=== PATIENT | female | born 1990 | race Caucasian/White ===

== ENCOUNTER → 2017-09-27 | Outpatient (CLI) | payer OTHER ==
[2017-09-28 01:37] LABS: T3 TOTAL 112 ng/dL (87-178)
== END ==
LOC: LAB 13:44
PROVIDERS: Nurse Practitioner Family
DX: K59.00 Constipation, unspecified (principal); R53.81 Other malaise

== ENCOUNTER → 2017-10-27 | Outpatient (CLI) | payer OTHER ==
[2017-10-27 10:53] LABS: EOS # 0.1 (0.04-0.40); EOS % 1.3 % (1.0-5.0); HEMATOCRIT 44.1 % (37.0-47.0); HEMOGLOBIN 14.5 g/dL (12.5-16.0); LYMPH# 2.3 (1.50-4.00); MEAN CELL VOLUME 89 fl (78-100); MEAN CORPUSCULAR HEMOGLOBIN 29 pg (27-31); MEAN CORPUSCULAR HGB CONC 33 g/dL (33-37); MEAN PLATELET VOLUME 9.1 fl (7.4-10.4); MONO # 0.5 (0.20-0.80); NEU # 4.3 (1.40-6.50); PLATELET COUNT 233 K/mm3 (130-400); RED BLOOD COUNT 4.95 M/mm3 (4.10-5.30); RED CELL DISTRIBUTION WIDTH 13.6 % (11.5-14.5); WHITE BLOOD COUNT 7.2 K/mm3 (4.8-10.8)
[2017-10-27 11:04] LABS: ALBUMIN 4.7 g/dL (3.5-5.0); BUN/CREATININE RATIO 18.7 (6.0-26.0); POTASSIUM 4.6 mmol/L (3.6-5.0); TOTAL BILIRUBIN 0.6 mg/dL (0.2-1.3); TOTAL PROTEIN 8.1 g/dL (6.3-8.2)
[2017-10-27 11:13] LABS: URINE APPEARANCE CLEAR; URINE BILIRUBIN NEGATIVE (NEGATIVE); URINE BLOOD 50 ery/uL (NEGATIVE); URINE COLOR YELLOW; URINE GLUCOSE NEGATIVE (NEGATIVE); URINE KETONE NEGATIVE (NEGATIVE); URINE LEUKOCYTE ESTERASE TRACE (NEGATIVE); URINE NITRATE NEGATIVE (NEGATIVE); URINE PROTEIN(semi-quant) NEGATIVE (NEGATIVE); URINE UROBILINOGEN NORMAL (NORMAL)
== END ==
LOC: LAB 10:40
PROVIDERS: Nurse Practitioner Family
DX: Z01.419 Encounter for gynecological examination (general) (routine) without abnormal findings (principal); Z87.898 Personal history of other specified conditions; R63.5 Abnormal weight gain; R53.82 Chronic fatigue, unspecified; R10.9 Unspecified abdominal pain; R31.9 Hematuria, unspecified

== ENCOUNTER → 2018-03-30 | Outpatient (CLI) | payer OTHER ==
[2018-03-30 11:24] LABS: EOS # 0.1 (0.04-0.40); EOS % 1.4 % (1.0-5.0); HEMATOCRIT 40.8 % (37.0-47.0); HEMOGLOBIN 13.8 g/dL (12.5-16.0); LYMPH# 1.9 (1.50-4.00); MEAN CELL VOLUME 88 fl (78-100); MEAN CORPUSCULAR HEMOGLOBIN 30 pg (27-31); MEAN CORPUSCULAR HGB CONC 34 g/dL (33-37); MONO # 0.5 (0.20-0.80); NEU # 3.3 (1.40-6.50); PLATELET COUNT 209 K/mm3 (130-400); RED BLOOD COUNT 4.66 M/mm3 (4.10-5.30); RED CELL DISTRIBUTION WIDTH 13.7 % (11.5-14.5); WHITE BLOOD COUNT 5.9 K/mm3 (4.8-10.8)
[2018-03-30 11:38] LABS: ALBUMIN 4.4 g/dL (3.5-5.0); BUN/CREATININE RATIO 18.5 (6.0-26.0); POTASSIUM 4.1 mmol/L (3.6-5.0); TOTAL BILIRUBIN 0.5 mg/dL (0.2-1.3); TOTAL PROTEIN 7.4 g/dL (6.3-8.2)
[2018-03-30 11:46] LABS: URINE APPEARANCE CLEAR; URINE BILIRUBIN NEGATIVE (NEGATIVE); URINE BLOOD NEGATIVE (NEGATIVE); URINE COLOR YELLOW; URINE GLUCOSE NEGATIVE (NEGATIVE); URINE KETONE NEGATIVE (NEGATIVE); URINE LEUKOCYTE ESTERASE NEGATIVE (NEGATIVE); URINE NITRATE NEGATIVE (NEGATIVE); URINE PROTEIN(semi-quant) NEGATIVE (NEGATIVE); URINE UROBILINOGEN NORMAL (NORMAL)
[2018-03-30 11:47] LABS: URINE WBC 0-1 /hpf (0-3)
== END ==
LOC: RAD 11:10
PROVIDERS: Nurse Practitioner Family
DX: E83.59 Other disorders of calcium metabolism (principal); N29 Other disorders of kidney and ureter in diseases classified elsewhere; R14.0 Abdominal distension (gaseous); R10.2 Pelvic and perineal pain; K59.00 Constipation, unspecified; R39.15 Urgency of urination; N76.0 Acute vaginitis

== ENCOUNTER → 2021-07-23 | Outpatient (CLI) | payer OTHER ==
[2021-07-23 12:13] LABS: BASO # 0.02 K/mm3 (0.02-0.10); EOS # 0.08 K/mm3 (0.04-0.40); HEMATOCRIT 42.5 % (37.0-47.0); LYMPH# 2.24 K/mm3 (1.50-4.00); MEAN CELL VOLUME 90 fl (78-100); MEAN CORPUSCULAR HEMOGLOBIN 30 pg (27-31); MEAN CORPUSCULAR HGB CONC 33 g/dL (33-37); MEAN PLATELET VOLUME 9.2 fl (7.4-10.4); MONO # 0.47 K/mm3 (0.20-0.80); NEU # 5.23 K/mm3 (1.40-6.50); PLATELET COUNT 231 K/mm3 (130-400); WHITE BLOOD COUNT 8.1 K/mm3 (4.8-10.8)
[2021-07-23 12:20] LABS: ALBUMIN 4.3 g/dL (3.5-5.0); POTASSIUM 4.2 mmol/L (3.5-5.1)
[2021-07-23 12:21] LABS: CALCIUM 9.9 mg/dL (8.3-10.5)
[2021-07-23 12:24] LABS: TOTAL BILIRUBIN 0.5 mg/dL (0.2-1.2)
== END ==
LOC: LAB 11:49
PROVIDERS: Family Medicine
DX: R73.9 Hyperglycemia, unspecified (principal); R30.9 Painful micturition, unspecified

== ENCOUNTER → 2021-08-11 | Outpatient (CLI) | payer OTHER | LOC: LAB 13:45 | DX: Z20.822 Contact with and (suspected) exposure to COVID-19 (principal) ==

== ENCOUNTER → 2021-09-05 | Outpatient (CLI) | payer OTHER | LOC: LAB 18:00 | DX: U07.1 COVID-19 (principal) ==

== ENCOUNTER → 2021-12-09 | Outpatient (CLI) | payer OTHER | LOC: LAB 11:11 | DX: R05.9 Cough, unspecified (principal); Z20.822 Contact with and (suspected) exposure to COVID-19 ==

== ENCOUNTER → 2021-12-19 | Outpatient (CLI) | payer OTHER ==
[2021-12-19 11:34] LABS: BASO # 0.02 K/mm3 (0.02-0.10); EOS # 0.13 K/mm3 (0.04-0.40); EOS % 1.6 % (1.0-5.0); HEMATOCRIT 44.9 % (37.0-47.0); HEMOGLOBIN 14.5 g/dL (12.5-16.0); LYMPH# 3.02 K/mm3 (1.50-4.00); MEAN CELL VOLUME 89 fl (78-100); MEAN CORPUSCULAR HEMOGLOBIN 29 pg (27-31); MEAN CORPUSCULAR HGB CONC 32 g/dL (33-37); MEAN PLATELET VOLUME 9.3 fl (7.4-10.4); NEU # 4.58 K/mm3 (1.40-6.50); PLATELET COUNT 219 K/mm3 (130-400); RED BLOOD COUNT 5.02 M/mm3 (4.10-5.30); RED CELL DISTRIBUTION WIDTH 13.4 % (11.5-14.5); WHITE BLOOD COUNT 8.3 K/mm3 (4.8-10.8)
[2021-12-19 11:52] LABS: ALBUMIN 4.5 g/dL (3.5-5.0); POTASSIUM 4.8 mmol/L (3.5-5.1)
[2021-12-19 11:53] LABS: CALCIUM 10.1 mg/dL (8.3-10.5)
[2021-12-19 11:55] LABS: TOTAL PROTEIN 7.4 g/dL (6.4-8.3)
[2021-12-19 11:56] LABS: TOTAL BILIRUBIN 0.6 mg/dL (0.2-1.2)
[2021-12-25 06:23] LABS: BAKERS YEAST ALLERGEN COUNT <0.10 kU/L (()); CORN ALLERGEN COUNT <0.10 kU/L (()); EGG WHITE ALLERGEN COUNT <0.10 kU/L (()); MILK ALLERGEN COUNT <0.10 kU/L (()); ORANGE ALLERGEN COUNT <0.10 kU/L (()); PEANUT ALLERGEN COUNT <0.10 kU/L (()); RICE ALLERGEN COUNT <0.10 kU/L (()); SOYBEAN ALLERGEN COUNT <0.10 kU/L (()); STRAWBERRY ALLERGEN COUNT <0.10 kU/L (()); TOMATO ALLERGEN COUNT <0.10 kU/L (()); WHEAT ALLERGEN COUNT <0.10 kU/L (())
== END ==
LOC: LAB 11:00
PROVIDERS: Family Medicine
DX: K90.0 Celiac disease (principal); F32.A Depression, unspecified; J45.20 Mild intermittent asthma, uncomplicated; E66.9 Obesity, unspecified; G47.09 Other insomnia; J30.2 Other seasonal allergic rhinitis; Z87.442 Personal history of urinary calculi

== ENCOUNTER → 2022-05-22 | Outpatient (CLI) | payer OTHER ==
[2022-05-22 09:39] LABS: BASO # 0.03 K/mm3 (0.02-0.10); EOS # 0.01 K/mm3 (0.04-0.40); EOS % 0.1 % (1.0-5.0); HEMATOCRIT 42.3 % (37.0-47.0); HEMOGLOBIN 13.7 g/dL (12.5-16.0); LYMPH# 1.54 K/mm3 (1.50-4.00); MEAN CELL VOLUME 90 fl (78-100); MEAN CORPUSCULAR HEMOGLOBIN 29 pg (27-31); MEAN CORPUSCULAR HGB CONC 32 g/dL (33-37); MEAN PLATELET VOLUME 9.4 fl (7.4-10.4); MONO # 0.75 K/mm3 (0.20-0.80); NEU # 6.88 K/mm3 (1.40-6.50); PLATELET COUNT 184 K/mm3 (130-400); RED BLOOD COUNT 4.72 M/mm3 (4.10-5.30); RED CELL DISTRIBUTION WIDTH 13.2 % (11.5-14.5); WHITE BLOOD COUNT 9.2 K/mm3 (4.8-10.8)
[2022-05-22 09:51] LABS: ALBUMIN 4.5 g/dL (3.5-5.0); POTASSIUM 3.8 mmol/L (3.5-5.1)
[2022-05-22 09:52] LABS: CALCIUM 9.6 mg/dL (8.3-10.5)
[2022-05-22 09:54] LABS: TOTAL PROTEIN 7.4 g/dL (6.4-8.3)
[2022-05-22 09:55] LABS: TOTAL BILIRUBIN 1.1 mg/dL (0.2-1.2)
[2022-05-23 08:42] LABS: PTH,INTACT 87.8 pg/mL (6.6-88.9)
== END ==
LOC: LAB 09:18
PROVIDERS: Family Medicine
DX: Z00.00 Encounter for general adult medical examination without abnormal findings (principal); J45.20 Mild intermittent asthma, uncomplicated; N92.1 Excessive and frequent menstruation with irregular cycle; K21.00 Gastro-esophageal reflux disease with esophagitis, without bleeding; E78.5 Hyperlipidemia, unspecified; K90.0 Celiac disease; F32.A Depression, unspecified; Z87.442 Personal history of urinary calculi; E66.9 Obesity, unspecified; G47.09 Other insomnia; E83.52 Hypercalcemia; J30.2 Other seasonal allergic rhinitis; N39.0 Urinary tract infection, site not specified; R53.83 Other fatigue

== ENCOUNTER → 2023-10-08 | Outpatient (CLI) | payer OTHER | LOC: RAD 07:58 | DX: R14.0 Abdominal distension (gaseous) (principal) ==

== ENCOUNTER → 2024-08-22 | Outpatient (CLI) | payer OTHER ==
[2024-08-22 10:50] LABS: BASO # 0.01 K/mm3 (0.02-0.10); EOS # 0.07 K/mm3 (0.04-0.40); EOS % 0.9 % (1.0-5.0); HEMATOCRIT 43.5 % (37.0-47.0); HEMOGLOBIN 14.6 g/dL (12.5-16.0); LYMPH# 2.07 K/mm3 (1.50-4.00); MEAN CELL VOLUME 88 fl (78-100); MEAN CORPUSCULAR HEMOGLOBIN 30 pg (27-31); MEAN CORPUSCULAR HGB CONC 34 g/dL (33-37); MEAN PLATELET VOLUME 9.5 fl (7.4-10.4); MONO # 0.46 K/mm3 (0.20-0.80); NEU # 4.86 K/mm3 (1.40-6.50); PLATELET COUNT 237 K/mm3 (130-400); RED BLOOD COUNT 4.95 M/mm3 (4.10-5.30); RED CELL DISTRIBUTION WIDTH 13.1 % (11.5-14.5); WHITE BLOOD COUNT 7.5 K/mm3 (4.8-10.8)
[2024-08-22 10:56] LABS: ALBUMIN 4.9 g/dL (3.5-5.0)
[2024-08-22 10:57] LABS: CALCIUM 10.6 mg/dL (8.3-10.5)
[2024-08-22 10:58] LABS: TOTAL PROTEIN 7.8 g/dL (6.4-8.3)
[2024-08-22 11:00] LABS: TOTAL BILIRUBIN 0.7 mg/dL (0.2-1.2)
[2024-08-23 01:02] LABS: CORTISOL RANDOM 11 ug/dL (3-20)
== END ==
LOC: LAB 10:34
PROVIDERS: Family Medicine
DX: E78.5 Hyperlipidemia, unspecified (principal); I10 Essential (primary) hypertension; E03.9 Hypothyroidism, unspecified; E27.9 Disorder of adrenal gland, unspecified; R73.9 Hyperglycemia, unspecified; E55.9 Vitamin D deficiency, unspecified